=== PATIENT | male | born 1960 | race Caucasian/White ===

== ENCOUNTER 2021-06-01 10:11 | Outpatient (CLI) | payer OTHER, SELFPAY ==
--- NOTE | 2021-06-01 10:18 | USCV_ITS ---
Reginaldo Mi Age: 60 Gender: M : 1960 Exam Date: 06/01/2021 10:34 Ordering Phys: Henrik Quiroz MD ([email or web address]) Technologist: Ramila Felix [place] [facility] [place]: HTN, RENAL BRUIT Aortic Velocity @ SMA (cm/s) 124 RIGHT KIDNEY LEFT KIDNEY Velocity (cm/s) Velocity (cm/s) Sys/Young Sys/Young Resistive Index Resistive Index 83.1 / 29.4 0.65 Proximal Renal Artery 76.5 / 27.6 0.64 82.0 / 27.3 0.67 Mid Renal Artery 91.3 / 27.6 0.70 85.1 / 29.2 0.66 Distal Renal Artery 90.1 / 31.1 0.65 91.5 / 36.1 0.60 Hilar 82.5 / 29.2 0.65 25.5 / 9.9 0.61 Upper Pole 38.7 / 15.2 0.61 26.1 / 9.7 0.63 Mid Pole 39.1 / 12.1 0.69 37.2 / 13.4 0.64 Lower Pole 28.5 / 10.8 0.62 0.70 Renal Aortic Ratio 0.74 Accleration Index (cm/sec2) 1257.0 Hilar 1269.0 0 0 673.00 Upper Pole 633.00 546.00 Mid Pole 721.00 623.00 Lower Pole 636.00 136.7 Kidney Length (mm) 133.3 FINDINGS Normal Doppler flow velocities, ratios and indices Normal kidney dimensions CONCLUSIONS 1. No significant renal artery stenosis, based on the above findings 2. Normal kidney dimensions bilaterally Dr Henrik Quiroz MD [facility] (Electronically Signed) Final Date: 01 June 2021 19:29 S
== END 2021-06-01 10:12 | disposition home or self-care (01) ==
LOC: RAD 10:12
PROVIDERS: PCP Family Medicine; Visit Provider Internal Medicine Cardiovascular Disease
DX: R09.89 Other specified symptoms and signs involving the circulatory and respiratory systems (principal)
CPT/HCPCS: 93975

== ENCOUNTER 2023-11-20 11:06 | Outpatient (RCR) | payer OTHER, SELFPAY | END 2023-12-03 23:59 | disposition home or self-care (01) | LOC: CR 11:06 | PROVIDERS: PCP Family Medicine; Referring Provider Thoracic Surgery (Cardiothoracic Vascular Surgery); Visit Provider Thoracic Surgery (Cardiothoracic Vascular Surgery) | DX: I25.10 Atherosclerotic heart disease of native coronary artery without angina pectoris (principal) | CPT/HCPCS: 93798 ==

== ENCOUNTER 2024-01-26 13:50 | Outpatient (RCR) | payer BC, SELFPAY | END 2024-02-02 23:59 | disposition home or self-care (01) | LOC: CR 13:50 | PROVIDERS: PCP Family Medicine; Referring Provider Family Medicine; Visit Provider Family Medicine | DX: I25.10 Atherosclerotic heart disease of native coronary artery without angina pectoris (principal) | CPT/HCPCS: 93798 ==

== ENCOUNTER 2024-02-03 10:30 | Outpatient (RCR) | payer BC, SELFPAY | END 2024-03-03 23:59 | disposition home or self-care (01) | LOC: CR 10:30 | PROVIDERS: PCP Family Medicine; Referring Provider Family Medicine; Visit Provider Family Medicine | DX: Z95.1 Presence of aortocoronary bypass graft (principal) | CPT/HCPCS: 93798 ==

== ENCOUNTER 2024-04-04 15:39 | Outpatient (RCR) | payer SELFPAY | END 2024-05-04 18:00 | disposition home or self-care (01) | LOC: CR 15:39 | PROVIDERS: PCP Family Medicine; Referring Provider Family Medicine; Visit Provider Family Medicine | DX: Z95.1 Presence of aortocoronary bypass graft (principal) ==

== ENCOUNTER 2024-05-05 12:13 | Outpatient (RCR) | payer SELFPAY | END 2024-06-03 23:59 | disposition home or self-care (01) | LOC: CR 12:13 | PROVIDERS: PCP Family Medicine; Referring Provider Family Medicine; Visit Provider Family Medicine | DX: Z95.1 Presence of aortocoronary bypass graft (principal) ==

== ENCOUNTER 2024-06-04 13:17 | Outpatient (RCR) | payer SELFPAY | END 2024-07-04 23:59 | disposition home or self-care (01) | LOC: CR 13:17 | PROVIDERS: PCP Family Medicine; Referring Provider Family Medicine; Visit Provider Family Medicine | DX: Z95.1 Presence of aortocoronary bypass graft (principal) ==

== ENCOUNTER 2024-07-05 12:59 | Outpatient (RCR) | payer SELFPAY | END 2024-08-03 23:59 | disposition home or self-care (01) | LOC: CR 12:59 | PROVIDERS: PCP Family Medicine; Referring Provider Family Medicine; Visit Provider Family Medicine | DX: Z95.1 Presence of aortocoronary bypass graft (principal) ==

== ENCOUNTER 2024-09-04 09:53 | Outpatient (RCR) | payer SELFPAY | END 2024-10-04 23:59 | disposition home or self-care (01) | LOC: CR 09:53 | PROVIDERS: PCP Family Medicine; Referring Provider Family Medicine; Visit Provider Family Medicine | DX: Z95.1 Presence of aortocoronary bypass graft (principal) ==

== ENCOUNTER 2024-10-07 15:16 | Outpatient (RCR) | payer SELFPAY | END 2024-11-01 23:59 | disposition home or self-care (01) | LOC: CR 15:16 | PROVIDERS: PCP Family Medicine; Referring Provider Family Medicine; Visit Provider Family Medicine | DX: Z95.1 Presence of aortocoronary bypass graft (principal) ==

== ENCOUNTER 2024-11-02 12:23 | Outpatient (RCR) | payer SELFPAY | END 2024-12-02 23:59 | disposition home or self-care (01) | LOC: CR 12:23 | PROVIDERS: PCP Family Medicine; Referring Provider Family Medicine; Visit Provider Family Medicine | DX: Z95.1 Presence of aortocoronary bypass graft (principal) ==